=== PATIENT | male | born 1970 | race Caucasian/White ===

== ENCOUNTER 2019-06-03 07:43 | Outpatient (CLI) | payer BC ==
--- NOTE | 2019-06-03 08:56 | MRI ---
MRI CERVICAL SPINE WITHOUT CONTRAST: HISTORY: Cervical disc degenerative change. COMPARISON: None. FINDINGS: Cervical fusion at C6-C7. Associated metallic susceptibility artifact. Cervical spine vertebral body height is maintained. No fracture. Appropriate T1 marrow signal intensity of the cervical vertebrae. No significant STIR hyperintensity to suggest vertebral body edema or ligamentous injury. Visualized brain parenchyma, cervicomedullary junction, cervical cord and the upper thoracic cord hav e a normal size and signal intensity. C2-C3: Adequate disc hydration. No significant central canal stenosis or neural foraminal narrowing. C3-C4: Adequate disc hydration. Broad-based disc bulge minimally deforms the thecal sac. Subarachnoid space is maintained. No significant central canal stenosis. Bilaterally, neural foramina are patent. C4-C5: Adequate disc hydration. Mild loss of disc space height. Broad-based disc-osteophyte complex a buts the thecal sac. Mild flattening of the cervical cord, without cord hyperintensity. Mild central canal stenosis. Mild right neural foraminal narrowing due to uncovertebral hypertrophy. Paten t left neural foramen. C5-C6: Desiccation with mild loss of disc space height. There is a broad-based disc bulge which effac es the subarachnoid space. There is flattening of the cervical cord, without cord hyperintensity. Moderate central canal stenosis. Moderate right neural foraminal narrowing. Moderate to severe left n eural foraminal narrowing. C6-C7: Disc prosthesis. Small left paracentral osteophyte ridge does make contact with the left hemic ord. Minimal cord deformity. No significant central canal stenosis. Bilaterally, neural foramina are patent. C7-T1: No significant central canal stenosis or neural foraminal narrowing. IMPRESSION: 1. Degenerative changes of the cervical spine as detailed above. 2. Uncomplicated cervical fusion at C6-C7. Transcribed Date/Time: 06/03/2019 9:36 AM
--- NOTE | 2019-06-03 09:19 | RAD ---
CERVICAL SPINE 5 VIEWS INCLUDING FLEXION AND EXTENSION LATERAL VIEWS: HISTORY: Degenerative cervical disk disease, M50.30. FINDINGS: Only the first 6 cervical vertebrae are completely seen on the lateral view, C7 and T1 are obscured. Additionally, portions of C1 and C2 odontoid are partially obscured on the AP open mouth view. Ante rior cervical fusion changes at C6 and C7. No prevertebral soft tissue swelling. No evidence for ab normal translation between flexion or extension. IMPRESSION: Cervical spondylosis. Anterior cervical fusion changes at C6-C7. No abnormal translation between fl exion and extension. POS: BEL
== END 2019-06-03 07:44 | disposition home or self-care (01) ==
LOC: TBSIIMAG 07:43
PROVIDERS: ATTEND Physician Assistant
DX: M50.10 Cervical disc disorder with radiculopathy, unspecified cervical region (principal); M47.22 Other spondylosis with radiculopathy, cervical region; Z98.1 Arthrodesis status
CPT/HCPCS: 72050; 72141

== ENCOUNTER 2019-07-06 08:12 | Outpatient (CLI) | payer BC ==
--- NOTE | 2019-07-06 09:17 | CT ---
CT Cervical Spine WO Con History: M 54.12 cervical radiculopathy Comparison: Cervical spine radiographs June 03, 2019 Findings: The paraspinal soft tissues are unremarkable. The lung apices are clear. Thyroid is unremar kable. The occipital condyles are intact. The odontoid process is intact. No acute fracture or malalignment of the cervical spine. There is advanced narrowing of the atlantodental interval with osteophyte formation anterior arch of C1. ACDF at C6/C7 with adequate osseous incorporation of the discectomy cage. No hardware complication. The levels are as follows: C2/C3: No significant neural foraminal or spinal canal narrowing. C3/C4: Small central disc osteophyte complex. Minimal effacement of ventral CSF space. Mild uncinate process hypertrophy. No significant neural foraminal narrowing. C4/C5: Mild degenerative disc space height loss. Broad-based posterior disc osteophyte complex with m ild uncinate process hypertrophy. Mild bilateral neural foraminal narrowing. Minimal effacement of the ventral CSF space. C5/C6: Moderate degenerative disc space height loss. Circumferential disc osteophyte complex, greates t in the central zone. Moderate left and mild right neural foraminal narrowing. Spinal canal narrowing to approximately 7 mm. C6/C7: Adequate osseous incorporation of the discectomy cage. Small left-sided osteophyte. Mild left neural foraminal narrowing. C7/T1: Mild degenerative disc space height loss. No neural foraminal or spinal canal narrowing. Impression: Mild spondylosis as described. Intact ACDF hardware at C6/C7 with adequate osseous corpor ation of the discectomy cage.
== END 2019-07-06 08:13 | disposition home or self-care (01) ==
LOC: SCSCT 08:12
PROVIDERS: ATTEND Neurological Surgery
DX: M47.22 Other spondylosis with radiculopathy, cervical region (principal); Z98.1 Arthrodesis status
CPT/HCPCS: 72125

== ENCOUNTER 2019-09-10 12:38 | Outpatient (CLI) | payer BC ==
--- NOTE | 2019-09-10 13:34 | RAD ---
RADIOGRAPH CERVICAL SPINE 4 VIEWS: DATE: 09/10/2019 HISTORY: 49-year-old male with M 54.12 cervical radiculopathy. Follow-up surgery. COMPARISON: Plain radiograph of 06/03/2019 FINDINGS: The previous study demonstrates anterior plate and screws at C6 and C7, with successful ankylosis bet ween the C6 and C7 vertebral bodies. That hardware has now been removed. Now, there are new anterior metallic plate and screws at C5 and C6. There has been interval widening of the interbody di sc space by placement of interbody cage at that level. There is no significant disc space narrowing at any level superior to C5. Again noted are the posterior endplate osteophytes that encroach upon th e anterior aspect of the spinal canal at C3-4, and especially C4-5. Atlantoaxial joints demonstrate no high-grade DJD. No significant prevertebral soft tissue swelling.. IMPRESSION: 1) interval removal of hardware of the successfully ankylosed C6-7 anterior cervical discectomy and f usion level. 2) interval placement of new hardware at new anterior cervical discectomy and fusion at C5-6. 3) discogenic degenerative changes at C4-5 is unchanged.
== END 2019-09-10 12:39 | disposition home or self-care (01) ==
LOC: TBSIIMAG 12:38
PROVIDERS: ATTEND Neurological Surgery
DX: M47.22 Other spondylosis with radiculopathy, cervical region (principal); Z98.1 Arthrodesis status
CPT/HCPCS: 72040

== ENCOUNTER 2020-02-23 07:31 | Outpatient (CLI) | payer BC ==
--- NOTE | 2020-02-23 07:49 | RAD ---
Exam: Cervical spine 3 views COMPARISON: 09/10/2019 HISTORY: Pain radiating down the neck with numbness. FINDINGS: On the AP projection, there is multilevel facet arthropathy. No malalignment. In the open-mouth projection, lateral masses of C1 and C2 articulate probably. The tip of the odontoi d process is obscured. There is no prevertebral soft tissue swelling. Predental space is normal. Redemonstration of anterior fusion plate with transvertebral body screw at C5 and C6. No perihardware lucency. The fusion plate is flush against the associated vertebral bodies. C5-C6 disc prosthesis is noted. Limited evalu ation of the cervical thoracic junction IMPRESSION: Uncomplicated C5-C6 cervical fusion
== END 2020-02-23 07:32 | disposition home or self-care (01) ==
LOC: TBSIIMAG 07:31
PROVIDERS: ATTEND Physician Assistant
DX: M54.12 Radiculopathy, cervical region (principal); Z98.1 Arthrodesis status
CPT/HCPCS: 72040